=== PATIENT | female | born 1975 | race Caucasian/White ===

== ENCOUNTER 2021-02-09 16:39 | Emergency (ER) | payer MEDICAID, SELFPAY ==
[2021-02-09 16:40] VITALS: BP 160/69; PULSE 67; RESP 16; TEMP 36.4; O2SAT 100; BMI 19.2
--- NOTE | 2021-02-09 17:01 | ED.VIS.LOWEX ---
HPI History of Present Illness Chief Complaint: Lower Extremity Injury Narrative Narrative: Patient presenting secondary to lower extremity bruising. Patient states that in a atraumatic fashion she started to have some burning over the pretibial area of her left leg. States that a day or so after that it started to bruise. She states that there was no trauma. She denies any increase use. She denies any recent travel or surgery. She denies any underlying history of easy bruising or bleeding. She denies any groin pain chest pain or shortness of breath or any history of DVT or PE. Patient was concerned about the possibility of a DVT however. Patient states currently there is some mild aching in that area. She denies any other skin changes associated with it she is not on any sort of anticoagulants review of systems otherwise negative. PFSH PFSH Allergy/AdvReac Type Severity Reaction Status Date / Time No Known Allergies Allergy Verified 02/09/21 16:42 Social History Smoking Status: Unknown if ever smoked ROS ROS ED Constitutional Constitutional ED: Denies fever(s) Cardiovascular Cardiovascular: Denies chest pain Respiratory/Chest Respiratory/Chest: Denies cough or dyspnea Musculoskeletal Musculoskeletal: Reports other Details: Left leg pain and bruising ; Denies myalgias Integumentary Denies rash Neurologic Neurologic: Denies paresthesias Hematologic/Lymphatic Hematologic/Lymphatic: Denies easy bleeding or easy bruising EXAM Physical Exam Const Vital Signs: 02/09/21 16:40 Temperature 97.5 F L Temperature Source Temporal Pulse Rate 67 Respiratory Rate 16 Blood Pressure 160/69 H Blood Pressure Mean 99 Pulse Ox 100 Oxygen Delivery Method Room Air Positive well nourished and well developed General Appearance ED: well developed HEENT normocephalic and atraumatic Neck full ROM Resp normal respiratory effort and clear to auscultation bilaterally Cardio regular rate, regular rhythm and no murmurs Cardio Narrative: 1+ DP and 2+ PT bilaterally Extremity Extremity Narrative: Examination the patient's left pretibial area shows a area of ecchymosis may be 3 cm and oval in shape. There is minimal tenderness in this area. No evidence of palpable cord, calves are supple bilaterally, thighs are supple bilaterally, no evidence of groin pain normal distal sensation and pulses. Normal capillary refill. No signs of skin breakdown. Neuro oriented x3 Sensorium / Orientation: alert Psych mental status grossly normal Skin Lesions: no lesions Rashes: no rashes MDM MDM MDM Narrative Medical decision making narrative: Patient presented with some small bruising on the leg but she was concerned for the possibility of DVT. Duplex ultrasound was obtained this was found to be negative. Patient likely bruised her leg with a trauma that she was unaware of. No signs of big-time varicosities or any other abnormalities. She was given reassurance and the patient was discharged. Radiography Diagnostic Testing: Clinical Impression(s) from Imaging Studies Venous Duplex 02/09/21 17:02 IMPRESSION: Normal venous Doppler ultrasound of the lower extremity. Electronically Signed: Ayush Corbett MD at 18:37 EST , Service support , Discharge Plan Triage Chief Complaint: Lower Extremity Injury ED Provider: Olman Hinojosa Dx/Rx/DC Orders Clinical Impression: Traumatic ecchymosis of left lower leg Instructions: ED Soft Tissue Contusion Primary Care Provider: Janet Woodard Referrals: Janet Woodard DO [Primary Care Provider] - As Needed Disposition Disposition: Home, Self Care
--- NOTE | 2021-02-09 17:02 | US_ITS ---
STUDY: VENOUS DOPPLER ULTRASOUND - LEFT LOWER EXTREMITY REASON FOR EXAM: Female, 46 years old. LT LATERAL CALF BRUISE WITH PAIN TECHNIQUE: Ultrasound evaluation of the deep vein system to include whitaker-scale imaging and compression was performed. Whitaker-scale imaging and Doppler sonographic evaluation, including duplex spectral analysis and qualitative color flow sonography, was performed. COMPARISON: None. FINDINGS: Common Femoral Vein: Normal compression, spontaneity and augmentation. Normal color Doppler. Common Femoral Vein/Greater Saphenous Junction: Normal compression, spontaneity and augmentation. Normal color Doppler. Deep Femoral Vein: Normal compression, spontaneity and augmentation. Normal color Doppler. Femoral Proximal: Normal compression, spontaneity and augmentation. Normal color Doppler. Femoral Middle: Normal compression, spontaneity and augmentation. Normal color Doppler. Femoral Distal: Normal compression, spontaneity and augmentation. Normal color Doppler. Popliteal Vein: Normal compression, spontaneity and augmentation. Normal color Doppler. Posterior Tibial Vein: Normal compression, spontaneity and augmentation. Normal color Doppler. Peroneal Vein: Normal compression, spontaneity and augmentation. Normal color Doppler. US/Venous Duplex Imag/Limited/Uni IMPRESSION: Normal venous Doppler ultrasound of the lower extremity. Electronically Signed: Ayush Corbett MD at 18:37 EST , Service support ,
== END 2021-02-09 19:41 | disposition home or self-care (01) ==
PROVIDERS: Emergency Provider Emergency Medicine; PCP Family Medicine
DX: S80.12XA Contusion of left lower leg, initial encounter (principal); X58.XXXA Exposure to other specified factors, initial encounter; Y93.9 Activity, unspecified; Y92.9 Unspecified place or not applicable
CPT/HCPCS: 93971; 99282